=== PATIENT | female | born 1990 | race American Indian/Alaskan Native ===

== ENCOUNTER 2017-01-13 16:17 | Emergency (ER) | payer MEDICAID, OTHER ==
--- NOTE | 2017-01-13 17:04 | C.PDOC ---
History Of Present Illness 26 y/o F c no PMHx p/w abdominal pain x 3 days, sharp, intermittent, mostly in the RLQ with associated nausea. She also reports R lower back pain x 1 week that radiates down the R leg. She also reports some pain in the R sided neck that radiates to the shoulder x 1 week. She denies fever, chills, vomiting, diarrhea, dysuria, injury. Time Seen by Provider: 01/13/17 16:55 Chief Complaint (Nursing): Abdominal Pain Past Medical History Vital Signs: Last Vital Signs Temp 97.9 F 01/13/17 20:19 Pulse 78 01/13/17 20:19 Resp 16 01/13/17 20:19 BP 120/81 01/13/17 20:19 Pulse Ox 100 01/13/17 20:19 Surgical History: Family History: States: Unknown Family Hx - Social History Hx Tobacco Use: No Hx Alcohol Use: No Hx Substance Use: No - Immunization History Hx Tetanus Toxoid Vaccination: No Hx Influenza Vaccination: No Hx Pneumococcal Vaccination: No Review Of Systems Except As Marked, All Systems Reviewed And Found Negative. Constitutional: Negative for: Fever Cardiovascular: Negative for: Chest Pain Physical Exam - Physical Exam Additional Physical Exam Comments: Constitutional: No acute distress. Head: Normocephalic. Atraumatic. Eyes: PERRL. ENT: Moist mucous membranes. Throat: No pharyngeal erythema. No exudates. Neck: Supple. No midline tenderness. Cardiovascular: Regular rate. Radial pulses 2+ bilaterally. Chest: No tenderness. Respiratory: Clear to auscultation bilaterally. GI: Soft. RLQ tenderness. No Rebound. No guarding. Back: No CVA tenderness. Musculoskeletal: No tenderness or swelling of extremities. Skin: No rash. Neurologic: Alert, no focal deficit. No mastoid tenderness. ED Course And Treatment - Laboratory Results Result Diagrams: 01/13/17 17:54 01/13/17 17:54 O2 Sat by Pulse Oximetry: 96 Medical Decision Making Medical Decision Making: PLAN: * CT - Abd & Pelvis * CBC * HCG Urine * Urinalysis * Zofran IVP * Sodium Chloride IV NOTE: * Patient declined analgesia. Back pain consistent with sciatica. CT - Abd & Pelvis: FINDINGS: Lower thorax: Lung bases clear without infiltrates or lobar pneumonia. ABDOMEN: Liver: Liver is morphologically normal without lesions or abnormal enhancement. Hepatic and portal veins are patent. Gallbladder and bile ducts: The gallbladder is normal. Pancreas: Normal pancreas without surrounding fluid or inflammation. No ductal dilation. Spleen: Unremarkable. No splenomegaly. Adrenals: The adrenal glands are normal. Kidneys and ureters: Symmetric renal enhancement is present. No suspicious renal mass, perinephric collection, or hydronephrosis. The ureters are normal. Multiple small nonobstructing stones in the kidneys are present. Stomach and bowel: The stomach is normal without gastric wall thickening or mucosal edema. Bowel loops appear within normal limits, no signs of wall thickening, mucosal edema, or bowel distention. Appendix: The appendix is not definitively visualized. However, no secondary signs of appendicitis are present. PELVIS: Bladder: Unremarkable. No mass. Reproductive: There is an irregular hyperdense crenelated lesion in the right ovary, consistent with a corpus luteum. Uterus and ovaries otherwise unremarkable. ABDOMEN and PELVIS: Intraperitoneal space: Minimal fluid is seen adjacent right adnexa. No significant free fluid is seen. No free air. Bones/joints: No acute fracture. No dislocation. Soft tissues: Unremarkable. Vasculature: The aorta and IVC appear within normal limits. Lymph nodes: Unremarkable. No enlarged lymph nodes. IMPRESSION: Small right ovarian cyst. Appendix is not definitively seen. Bilateral nephrolithiasis, no obstructive uropathy. Minimal nonspecific fluid adjacent right adnexa without significant free fluid seen. At reassessment, patient states she feels better. Will discharge home, instructed f/u with OBGYN at clinic, NSAIDs, return to ER for worsening pain, fever, vomiting, dyspnea, or any other problem. Disposition - Disposition Referrals: [facility] at [facility] [Outside] Disposition: HOME/ ROUTINE Disposition Time: 19:29 Condition: STABLE Prescriptions: Ibuprofen [Motrin] 600 mg PO Q6 #25 tab Instructions: Ovarian Cyst (ED) - Clinical Impression Clinical Impression: Ovarian cyst - Scribe Statement The provider has reviewed the documentation as recorded by the Ozzyibjeffrey Tidwell Provider Attestation: All medical record entries made by the Ozzyibjeffrey were at my direction and personally dictated by me. I have reviewed the chart and agree that the record accurately reflects my personal performance of the history, physical exam, medical decision making, and the department course for this patient. I have also personally directed, reviewed, and agree with the discharge instructions and disposition.
[2017-01-13] MEDS ORDERED: Sodium Chloride 0.9% 1,000 ML IV STA (17:05)
[2017-01-13] MEDS ORDERED: Sodium Chloride 0.9% 1,000 ML ONE (17:43)
[2017-01-13 18:00] LABS: BASO # 0.1 K/uL (0.0-0.2); BASO % 0.8 % (0.0-2.0); EOS # 0.1 K/uL (0.0-0.7); EOS % 1.2 % (0.0-4.0); HEMATOCRIT 36.7 % (34.0-47.0); LYMPH # 2.7 K/uL (1.0-4.3); LYMPH % 41.1 % (20.0-40.0); MEAN CELL VOLUME 77.3 fL (81.0-99.0); MEAN CORPUSCULAR HEMOGLOBIN 25.6 pg (27.0-31.0); MEAN CORPUSCULAR HGB CONC 33.2 g/dL (33.0-37.0); MEAN PLATELET VOLUME 8.6 fL (7.2-11.7); MONO # 0.4 K/uL (0.0-0.8); MONO % 5.6 % (0.0-10.0); NRBC % 0.1 % (0.0-2.0); RED CELL DISTRIBUTION WIDTH 14.6 % (11.5-14.5); WHITE BLOOD COUNT 6.6 K/uL (4.8-10.8)
[2017-01-13 18:09] LABS: CHLORIDE 101 mmol/L (98-107); POTASSIUM 4.6 mmol/L (3.6-5.2); SODIUM 139 mmol/L (132-148)
[2017-01-13 18:11] LABS: BILIRUBIN,TOTAL 0.9 mg/dL (0.2-1.3); CARBON DIOXIDE 23 mmol/L (22-30); GFR AFRICAN-AMERICAN > 60; RBC URINE < 1 /hpf (0-3); URINE BILIRUBIN NEGATIVE (NEGATIVE); URINE BLOOD NEGATIVE (NEGATIVE); URINE COLOR Yellow (YELLOW); URINE GLUCOSE (UA) NORMAL (Normal); URINE KETONE NEGATIVE (NEGATIVE); URINE LEUKOCYTE ESTERASE NEG Leu/uL (Negative); URINE PROTEIN NEGATIVE (NEGATIVE); URINE UROBILINOGEN NORMAL mg/dL (0.2-1.0); WBC URINE 1 /hpf (0-5)
[2017-01-13 18:12] LABS: ALB/GLOB RATIO 1.2 (1.0-2.1); ALKALINE PHOSPHATASE 72 U/L (38-126); ALT/SGPT 13 U/L (9-52); AST/SGOT 30 U/L (14-36); BLOOD UREA NITROGEN 15 mg/dL (7-17); CALCIUM 8.9 mg/dl (8.6-10.4); GLUCOSE,RANDOM 92 mg/dL (65-105); TOTAL PROTEIN 8.4 g/dL (6.3-8.3)
[2017-01-13] MEDS ORDERED: Iohexol 350mg/ml 100 ML ONE (18:50)
[2017-01-13 20:19] VITALS: BP 120/81; PULSE 78; RESP 16; TEMP 97.9
[2017-01-13 20:55] VITALS: O2SAT 96
--- NOTE | 2017-01-14 08:51 | CT ---
PROCEDURE: CT Abdomen and Pelvis with contrast HISTORY: RLQ pain COMPARISON: None. TECHNIQUE: Contrast dose: Radiation dose: Total exam DLP = mGy-cm. This CT exam was performed using one or more of the following dose reduction techniques: Automated exposure control, adjustment of the mA and/or kV according to patient size, and/or use of iterative reconstruction technique. FINDINGS: LOWER THORAX: Unremarkable. LIVER: Unremarkable. No gross lesion or ductal dilatation. GALLBLADDER AND BILE DUCTS: Unremarkable. PANCREAS: Unremarkable. No gross lesion or ductal dilatation. SPLEEN: Unremarkable. ADRENALS: Unremarkable. No mass. KIDNEYS AND URETERS: Unremarkable. No hydronephrosis. No solid mass. Incidental finding(s): Nonobstructing calculi bilaterally none larger than 2 mm. VASCULATURE: Unremarkable. No aortic aneurysm. BOWEL: Unremarkable. No obstruction. No gross mural thickening. APPENDIX: No abnormalities to suggest acute appendicitis. No right lower quadrant inflammatory processes identified. PERITONEUM: Unremarkable. No free fluid. No free air. LYMPH NODES: Unremarkable. No enlarged lymph nodes. BLADDER: Unremarkable. REPRODUCTIVE: Unremarkable. BONES: No acute fracture. OTHER FINDINGS: None. IMPRESSION: No acute findings related to/accounting for the clinical presentation. Incidental finding(s): Nonobstructing renal calculi bilaterally. Concordant results (preliminary interpretation) provided by [employer]. Procedure Completed: 19:08. Preliminary ([employer]) Report: Dictated and Authenticated: 19:29. Final Interpretation: 08:50. January 14, 2017.
== END 2017-01-13 20:19 | disposition home or self-care (01) ==
LOC: C.ER 16:17
DX: N83.201 Unspecified ovarian cyst, right side (principal)
CPT/HCPCS: 74177; 80053; 81001; 83690; 84703; 85025; 96361; 96374; 99285; J2405; J7040; Q9967

== ENCOUNTER 2017-12-18 01:12 | Emergency (ER) | payer SELFPAY ==
[2017-12-18 01:41] VITALS: BP 115/77; PULSE 102; RESP 18; TEMP 98.4; O2SAT 98
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
== END 2017-12-18 03:24 | disposition home or self-care (01) ==
LOC: C.ER 01:12
DX: S00.83XA Contusion of other part of head, initial encounter (principal); Y04.0XXA Assault by unarmed brawl or fight, initial encounter